=== PATIENT | female | born 1960 | race Caucasian/White ===

== ENCOUNTER → 2018-09-14 16:28 | Outpatient (CLI) | payer BC, SELFPAY ==
[2018-09-14 17:51] LABS: Estradiol < 11.0 pg/mL
[2018-09-14 17:55] LABS: Progesterone Level 4.82 ng/mL (See Comment)
[2018-09-16 12:33] LABS: DHEA Sulfate 157.2 ug/dL (29.4-220.5)
[2018-09-19 13:33] LABS: HPV Reflexed? NOT INDICATED
== END ==
PROVIDERS: Visit Provider Obstetrics & Gynecology
DX: Z78.0 Asymptomatic menopausal state (principal); Z12.4 Encounter for screening for malignant neoplasm of cervix
CPT/HCPCS: 36415; 82533; 82627; 82670; 84144; 84403; 88175; 82626; G0145